=== PATIENT | female | born 1990 | race Caucasian/White ===

== ENCOUNTER 2016-12-28 09:21 | Inpatient (IN) | payer MEDICAID ==
[~2016-12-28] VITALS: Ht 157.5 cm; Wt 90.7 kg
[2016-12-28 09:35] VITALS: BP 132/86
[2016-12-28] MEDS ORDERED: ONDANSETRON 4 MG/2 ML VIAL IVP ONE (09:45)
[2016-12-28] MEDS ORDERED: KETOROLAC 30 MG/ML VIAL IVP ONE (09:45)
[2016-12-28] MEDS ORDERED: NACL 0.9% 1,000 ML IV ONE (09:45)
[2016-12-28] MEDS ORDERED: ALUMINUM HYD/MAG/SIMETHICONE 30 ML, DICYCLOMINE HCL LIQUID 20 MG, LIDOCAINE VISCOUS 2% ... PO ONE ×3 (09:45)
--- NOTE | 2016-12-28 09:48 | NUR ---
26/F BIB SELF c/o Epigastric pain x 1 wk. pt states it is an ongoing pain & watery stools SINCE Jul 2016. PT HAS NAUSEA & DIARRHEA X 2 TIMES X TODAY. HX OF DM & GALL STONE. SKIN IS PINK/WARM/DRY; AAOX4 WITH EVEN AND STEADY GAIT; LUNGS CLEAR BL; HR EVEN AND REGULAR; PT DENIES ANY FEVER, CP OR SOB AT THIS TIME; PATIENT STATES PAIN OF 5/10 AT THIS TIME; VSS; PATIENT POSITIONED FOR COMFORT; HOB ELEVATED; BEDRAILS UP X2; BED DOWN. ER MD MADE AWARE OF PT STATUS.
--- NOTE | 2016-12-28 09:55 | NUR ---
INSERTED IV NO 20 RAC BY RN TYRONE.IV PATENT/INTACT. PT TOLERATED PROCEDURE WELL.
[2016-12-28 10:07] LABS: BASOPHILS # (AUTO) 0.3 K/uL (0.00-0.22); BASOPHILS % (AUTO) 3.5 % (0.0-2.0); EOSINOPHILS # (AUTO) 0.2 K/uL (0-0.4); EOSINOPHILS % (AUTO) 2.5 % (0.0-4.0); HEMATOCRIT 38.8 % (36-48); LYMPHOCYTES # (AUTO) 2.4 K/uL (2.5-16.5); LYMPHOCYTES % (AUTO) 32.8 % (20.5-51.1); MEAN CORPUSCULAR HEMOGLOBIN 28 pg (27-31); MEAN CORPUSCULAR HGB CONC 34 g/dL (33-37); MEAN CORPUSCULAR VOLUME 83 fL (80-94); MONOCYTES # (AUTO) 0.7 K/uL (0.8-1.0); MONOCYTES % (AUTO) 8.9 % (1.7-9.3); NEUTROPHILS # (AUTO) 3.8 K/uL (1.8-7.7); NEUTROPHILS % (AUTO) 52.3 % (42.2-75.2); PLATELET COUNT (AUTO) 317 K/uL (140-450); RED BLOOD CELL COUNT(AUTO) 4.66 MIL/uL (4.20-5.40); RED CELL DISTRIBUTION WIDTH 12.8 % (11.6-13.7); WHITE BLOOD COUNT (AUTO) 7.4 K/uL (4.8-10.8)
[2016-12-28 10:10] LABS: APPEARANCE,URINE CLEAR (CLEAR); BILIRUBIN,URINE NEGATIVE (NEGATIVE); BLOOD, URINE TRACE-I (NEGATIVE); COLOR,URINE YELLOW (YELLOW); LEUKOCYTE ESTERASE ,URINE NEGATIVE (NEGATIVE); NITRITE, URINE NEGATIVE (NEGATIVE); PROTEIN,URINE NEGATIVE (NEGATIVE); UGLUCOSE NEGATIVE (NEGATIVE); UROBILINOGEN,URINE 0.2 EU/dL (0.2 - 1)
[2016-12-28 10:17] LABS: ANION GAP 13.6 (8-16); CALCIUM 8.3 mg/dL (8.5-10.1); CARBON DIOXIDE 25.2 mmol/L (21-32); CREATININE 0.7 mg/dL (0.6-1.3); POTASSIUM 3.8 mmol/L (3.5-5.1)
[2016-12-28 10:20] LABS: BACTERIA,URINE 1+ /HPF (None Seen); RBC,URINE 0-5 (RARE) /HPF (0-5); WBC,URINE 0-5 (RARE) /HPF (0-5)
[2016-12-28 10:22] LABS: ALBUMIN 3.5 g/dL (3.4-5.0); TOTAL BILIRUBIN 0.2 mg/dL (0.0-1.0); TOTAL PROTEIN, SERUM 7.8 g/dL (6.4-8.2)
--- NOTE | 2016-12-28 10:40 | NUR ---
PT AMB TO REST ROOM.
--- NOTE | 2016-12-28 11:00 | NUR ---
Patient appears to be resting comfortably in bed. Vital Signs within normal limits. Respirations even and unlabored.WILL CONTINUE TO MONITOR. Addendum: 12/28/16 at 1120 by [email or web address] PT DENIES ANY PAIN AT THIS TIME.
[2016-12-28] MEDS ORDERED: HYDROmorphone 1 MG/ML AMP IVP ONE (12:15)
[2016-12-28] MEDS ORDERED: ACETAMINOPHEN 325 MG TAB PO PRN (12:20)
[2016-12-28] MEDS ORDERED: cefTRIAXone 1,000 MG VIAL ONE (12:30)
--- NOTE | 2016-12-28 12:55 | NUR ---
GAVE REPORT TO TAYO KLEIN.
--- NOTE | 2016-12-28 12:58 | NUR ---
APatient will be admitted to care of DR CASEY. Admited to TELE. Will go to room 119B. Belongings list completed. Report to TAYO KLEIN.
[2016-12-28 13:03] LABS: PARTIAL THROMBOPLASTIN TIME 28.5 secs (22-35.6); PROTHROMBIN TIME 10.4 secs (10.8-13.4)
[2016-12-28 13:30] VITALS: BP 106/58
--- NOTE | 2016-12-28 13:30 | NUR ---
PT WAS WHEELED IN VIA GURNEY FROM THE ER, A/OX4. WITH NO S/S OF DISTRESS. NO COMPLAINTS OF PAIN AT THIS TIME. WITH IV HEPLOCK AT RIGHT AC 20 G, INTACT AND PATENT. INITIAL ASSESSMENT DONE. ORIENTED PT TO THE UNIT. WILL CONTINUE TO MONITOR. CALL LIGHT WITHIN REACH.
[2016-12-28] MEDS ORDERED: METF500T PO (14:16)
[2016-12-28 14:28] LABS: ALCOHOL, BLOOD < 3 mg/dL (<3); FREE T4 (FREE THYROXINE) 1.19 ng/dL (0.76-1.46); MAGNESIUM 1.8 mg/dL (1.8-2.4); PHOSPHORUS 3.6 mg/dL (2.5-4.9)
[2016-12-28] MEDS ORDERED: INSULIN LISPRO SLIDING SCALE 100 UNITS/ML VIAL SUBQ PRN ×2 (14:50)
[2016-12-28] MEDS ORDERED: DEXTROSE 50% 50 ML SYR IVP PRN ×2 (14:50)
[2016-12-28 14:53] LABS: THYROID STIMULATING HORMONE 3.27 uIU/mL (0.34-3.76)
--- NOTE | 2016-12-28 15:30 | NUR ---
MRSA NARES SWABS COLLECTED AND SENT TO THE LAB.
[2016-12-28] MEDS: NACL 0.9% 1,000 ML IV SCH ×3 (15:31→23:13)
[2016-12-28 16:00] VITALS: BP 102/60
[2016-12-28] MEDS ORDERED: PNEUMOCOCCAL VACCINE 23 MCG/0.5 ML VIAL IMVAC SCH (16:00)
[2016-12-28] MEDS: BLOOD GLUCOSE MONITORING 1 DEV DEV FS SCH ×2 (16:30→20:38)
[2016-12-28] MEDS ORDERED: BLOOD GLUCOSE MONITORING 1 DEV DEV FS SCH (16:30)
--- NOTE | 2016-12-28 19:07 | NUR ---
PAGED Merlene JEFFERSON REGARDING PT'S DIET AND MRSA SCREEN ORDERS. DOCTOR STATED HE WILL PUT THE ORDER ACCORDINGLY.
--- NOTE | 2016-12-28 19:15 | NUR ---
LEFT A MESSAGE TO DIETARY FOR PT'S DINNER.
--- NOTE | 2016-12-28 19:29 | NUR ---
ENDORSED TO STRAPPING MACHINE OPERATOR RN FOR CONTINUITY OF CARE.
--- NOTE | 2016-12-28 19:30 | NUR ---
RECEIVED PT AWAKE TALKING TO FAMILY MEMBERS AT BEDSIDE, VITAL SIGNS STABLE, DENIES ANY PAIN, NO NAUSEA NOTED, IVF INFUSING WELL, PLAN OF CARE DISCUSS, SAFETY MEASURES IN PLACE, CALL LIGHT WITHIN REACH.
[2016-12-28 20:00] VITALS: BP 123/74
--- NOTE | 2016-12-28 20:10 | NUR ---
BLOOD SUGAR CHECKED WITH 93 RESULT, [facility] DIET WITH TUNA SANDWICH PROVIDED, CONSUMED 100%, INSTRUCTED NPO AFTER MIDNIGHT, VERBALIZED UNDERSTANDING, ALL NEEDS ATTENDED.
[2016-12-28] MEDS: MORPHINE SULFATE 2 MG/ML SYR IVP PRN (21:53)
[2016-12-28] MEDS: ONDANSETRON 4 MG/2 ML VIAL IVP PRN (23:10)
--- NOTE | 2016-12-28 23:10 | NUR ---
PT NAUSEATED BUT NO VOMITING, MEDICATED PRN WITH ZOFRAN IVP, DENIES ANY PAIN AT THIS TIME, MONITORED CLOSELY.
[2016-12-28 23:17] LABS: AMPHETAMINE, URINE NEG. ng/ml (NEG <=1000); BARBITURATE, URINE NEG. ng/ml (NEG <=200); BENZODIAZEPINE, URINE NEG. ng/mL (NEG <=200); CANNABINOID, URINE POS. ng/mL (NEG <=50); COCAINE, URINE NEG. ng/mL (NEG <=300); OPIATE, URINE NEG. ng/mL (NEG <=2000); PHENCYCLIDINE SCREEN,URINE NEG. ng/mL (NEG <=25)
[2016-12-29] VITALS (11 sets, daily range): BP systolic 103–131; BP diastolic 52–80
--- NOTE | 2016-12-29 05:02 | NUR ---
PT AWAKE, MADE AWARE OF PLANNED PROCEDURE, PT PREFER TO SIGN THE SURGICAL CONSENT LATER, WILL ENDORSE TO AM SHIFT.
--- NOTE | 2016-12-29 05:55 | NUR ---
PT SLEEPING, EASILY AROUSABLE, BLOOD SUGAR CHECKED WITH 93 RESULT, IVF INFUSING WELL, MAINTAINED ON NPO, FOR LAP CHOLECYSTECTOMY TODAY, NO SCHEDULE AT THIS TIME, WILL ENDORSE, MONITORED CLOSELY.
[2016-12-29 06:33] LABS: BASOPHILS # (AUTO) 0.1 K/uL (0.00-0.22); BASOPHILS % (AUTO) 1.9 % (0.0-2.0); EOSINOPHILS # (AUTO) 0.3 K/uL (0-0.4); EOSINOPHILS % (AUTO) 3.8 % (0.0-4.0); HEMATOCRIT 37.2 % (36-48); HEMOGLOBIN 12.3 g/dL (12.0-16.0); LYMPHOCYTES # (AUTO) 2.9 K/uL (2.5-16.5); LYMPHOCYTES % (AUTO) 40.4 % (20.5-51.1); MEAN CORPUSCULAR HEMOGLOBIN 28 pg (27-31); MEAN CORPUSCULAR HGB CONC 33 g/dL (33-37); MEAN CORPUSCULAR VOLUME 85 fL (80-94); MONOCYTES # (AUTO) 0.6 K/uL (0.8-1.0); MONOCYTES % (AUTO) 8.4 % (1.7-9.3); NEUTROPHILS # (AUTO) 3.2 K/uL (1.8-7.7); NEUTROPHILS % (AUTO) 45.5 % (42.2-75.2); PLATELET COUNT (AUTO) 290 K/uL (140-450); RED BLOOD CELL COUNT(AUTO) 4.36 MIL/uL (4.20-5.40); RED CELL DISTRIBUTION WIDTH 12.9 % (11.6-13.7); WHITE BLOOD COUNT (AUTO) 7.1 K/uL (4.8-10.8)
[2016-12-29] MEDS: BLOOD GLUCOSE MONITORING 1 DEV DEV FS SCH ×4 (06:37→20:43)
[2016-12-29 07:05] LABS: CHOL/HDL RATIO 3.4 (1-4.5); MAGNESIUM 1.7 mg/dL (1.8-2.4); PHOSPHORUS 3.8 mg/dL (2.5-4.9)
[2016-12-29 07:11] LABS: ANION GAP 12.6 (8-16); CALCIUM 7.6 mg/dL (8.5-10.1); CARBON DIOXIDE 25.3 mmol/L (21-32); CREATININE 0.7 mg/dL (0.6-1.3); POTASSIUM 3.9 mmol/L (3.5-5.1)
--- NOTE | 2016-12-29 07:20 | NUR ---
PT AWAKE, NO DISTRESS NOTED, REPORT GIVEN TO RN MAUREEN FOR CONTINUITY OF CARE.
--- NOTE | 2016-12-29 07:20 | NUR ---
RECEIVED REPORT FROM PM NURSE. PT SEEN ON BED, AOX4. WITH AN IV ON RIGHT AC 20 G, PATENT AND INFUSING WELL WITH NS. NO S/S OF DISTRESS. SIGNED CONSENT, UNDERSTOOD PROCEDURE. WILL CONTINUE TO MONITOR. CALL LIGHT WITHIN REACH.
[2016-12-29] MEDS: NACL 0.9% 1,000 ML IV SCH ×2 (08:19→18:19)
[2016-12-29] MEDS: PANTOPRAZOLE 40 MG INJ VIAL IVP SCH (09:05)
--- NOTE | 2016-12-29 09:58 | NUR ---
PATIENT HAS BEEN SCREENED AND CATEGORIZED HIGH NUTRITION RISK. PATIENT WILL BE SEEN WITHIN 1-2 DAYS OF ADMISSION. 12/29/16-12/30/[address]
--- NOTE | 2016-12-29 10:42 | NUR ---
CM NOTE PER MEDICAL WRITER JOSE, REVIEWS SHOULD ONLY BE SENT TO [facility]. FAXED INITIAL REVIEW TO [facility] [phone] [place] [phone]
--- NOTE | 2016-12-29 11:25 | NUR ---
PT WENT TO OR VIA GURNEY. IN STABLE CONDITION.
[2016-12-29] MEDS ORDERED: ROCURONIUM 50 MG/5 ML VIAL IV ONE (12:29)
[2016-12-29] MEDS ORDERED: DEXAMETHASONE 4 MG/ML VIAL ONE (12:29)
[2016-12-29] MEDS ORDERED: KETOROLAC 30 MG/ML VIAL ONE (12:29)
[2016-12-29] MEDS ORDERED: LIDOCAINE 2% 100 MG/5 ML SYR IVP ONE (12:29)
[2016-12-29] MEDS ORDERED: PROPOFOL 200 MG/20 ML VIAL IV ONE (12:29)
[2016-12-29] MEDS ORDERED: DESFLURANE 240 ML BTL INH ONE (12:29)
[2016-12-29] MEDS ORDERED: SUCCINYLCHOLINE CHLORIDE 200 MG/10 ML VIAL IVP ONE (12:29)
[2016-12-29] MEDS ORDERED: BUPIVACAINE-MPF/EPI 0.25% 30 ML VIAL INJ ONE (12:36)
[2016-12-29] MEDS ORDERED: MIDAZOLAM 2 MG/2 ML VIAL ONE (12:39)
[2016-12-29] MEDS ORDERED: fentaNYL 0.05 MG/ML VIAL ONE (12:39)
[2016-12-29] MEDS ORDERED: ceFAZolin 1,000 MG VIAL ONE (12:43)
[2016-12-29] MEDS ORDERED: ONDANSETRON 4 MG/2 ML VIAL IVP PRN (12:55)
[2016-12-29] MEDS ORDERED: HYDROmorphone 1 MG/ML AMP IVP PRN (12:55)
[2016-12-29] MEDS ORDERED: BLOOD GLUCOSE MONITORING 1 DEV DEV FS SCH (12:57)
[2016-12-29] MEDS: HYDROmorphone PFS 2 MG/ML SYR ONE ×4 (14:07→14:37)
--- NOTE | 2016-12-29 15:03 | NUR ---
PT RETURNED FROM OR, IN STABLE CONDITION. WITH 4 ABDOMINAL BANDAGES, INTACT AND DRY. PT IS COMPLAINING OF PAIN, WILL MEDICATE. WILL CONTINUE TO MONITOR. NO S/S OF DISTRESS. CALL LIGHT WITHIN REACH.
--- NOTE | 2016-12-29 15:11 | NUR ---
12/29/16 RD INITIAL ASSESSMENT COMPLETED PLEASE REFER TO NUTRITION ASSESSMENT UNDER CARE ACTIVITY FOR ESTIMATED NUTRITIONAL NEEDS. 1. WHEN MEDICALLY FEASIBLE, RESUME PO DIET - TO START ON CLEAR LIQUID DIET AND ADVANCE TOLERATED TO 75 G CONSISTENT CARBOHYDRATE DIET 2. RD TO FOLLOW-UP 2-3 DAYS; HIGH RISK LOPEZ BOWEN, ISHAAN
[2016-12-29] MEDS: MORPHINE SULFATE 2 MG/ML SYR IVP PRN (15:37)
--- NOTE | 2016-12-29 16:29 | NUR ---
PT COMPLAINED OF ITCHINESS ON FACE AND LEGS. SPOKE TO DOCTOR.
[2016-12-29] MEDS ORDERED: MAG SULF 2000 MG/WATER PREMIX 50 ML IV SCH (16:30)
[2016-12-29] MEDS ORDERED: diphenhydrAMINE 50 MG/ML VIAL IVP PRN (16:30)
--- NOTE | 2016-12-29 17:29 | NUR ---
PT WAS ABLE TO AMBULATE WITH A 1 PERSON ASSIST TO THE BATHROOM: WAS ABLE TO PASS GAS AND URINATE.
--- NOTE | 2016-12-29 18:48 | NUR ---
PT SEEN AMBULATING AROUND THE UNIT WITH AT HER SIDE.
--- NOTE | 2016-12-29 19:20 | NUR ---
ENDORSED TO GLAZE SUPERVISOR RN FOR CONTINUITY OF CARE
--- NOTE | 2016-12-29 19:25 | NUR ---
RECEIVED FROM AM RN IN BED WITH SPOUSE. SEEN PT. AMBULATING DOWN THE HALLWAY EARLIER. IVF SITE TO RAC#20 INTACT AND NO INFILTRATION. VERBALIZES WELL. A/O X 4. ROM X 4. CLEAR SPEECH. LAP CHOLECYSTECTOMY DONE TODAY. CARE PLANS FOR THE NIGHT DISCUSSED WITH HER AND CALL LIGHT WITH IN REACH. NO BLEEDING TO INCISION SITE.
[2016-12-29] MEDS: ONDANSETRON 4 MG/2 ML VIAL IVP PRN (20:42)
[2016-12-29] MEDS: HYDROmorphone 1 MG/ML AMP IVP PRN (20:42)
[2016-12-29] MEDS: HYDROcodone/APAP 5/325 MG 1 TAB TAB PO PRN (23:19)
--- NOTE | 2016-12-29 23:47 | NUR ---
PT. REQUESTED PAIN RELIEVER. RT SHE STATED THAT SHE CAN START FEELING PAIN IN HER STOMACH NOW. REQUESTED FOR P.O. PAIN RELIEVER. MEDICATED WITH NORCO ORDERED. A/O X 4.
[2016-12-30 00:11] VITALS: BP 119/73
[2016-12-30] MEDS: NACL 0.9% 1,000 ML IV SCH ×2 (04:19→08:47)
[2016-12-30] MEDS: HYDROmorphone 1 MG/ML AMP IVP PRN ×2 (04:42→14:23)
--- NOTE | 2016-12-30 05:26 | NUR ---
AWAKE AT THIS TIME AND DOING SPIROMETRY EXERCISE. ABLE TO VERBALIZE WELL. NO SOB. CALL LIGHT WITH IN REACH.
[2016-12-30] MEDS: BLOOD GLUCOSE MONITORING 1 DEV DEV FS SCH ×3 (05:40→17:23)
[2016-12-30 06:14] LABS: BASOPHILS # (AUTO) 0.1 K/uL (0.00-0.22); BASOPHILS % (AUTO) 0.8 % (0.0-2.0); EOSINOPHILS # (AUTO) 0.2 K/uL (0-0.4); EOSINOPHILS % (AUTO) 1.5 % (0.0-4.0); HEMATOCRIT 36.9 % (36-48); HEMOGLOBIN 12.3 g/dL (12.0-16.0); LYMPHOCYTES # (AUTO) 1.9 K/uL (2.5-16.5); MEAN CORPUSCULAR HEMOGLOBIN 28 pg (27-31); MEAN CORPUSCULAR HGB CONC 33 g/dL (33-37); MEAN CORPUSCULAR VOLUME 84 fL (80-94); MONOCYTES # (AUTO) 0.6 K/uL (0.8-1.0); MONOCYTES % (AUTO) 5.4 % (1.7-9.3); NEUTROPHILS # (AUTO) 8.9 K/uL (1.8-7.7); NEUTROPHILS % (AUTO) 76.3 % (42.2-75.2); PLATELET COUNT (AUTO) 305 K/uL (140-450); RED BLOOD CELL COUNT(AUTO) 4.42 MIL/uL (4.20-5.40); RED CELL DISTRIBUTION WIDTH 12.8 % (11.6-13.7); WHITE BLOOD COUNT (AUTO) 11.7 K/uL (4.8-10.8)
[2016-12-30 06:16] LABS: ANION GAP 12.4 (8-16); CALCIUM 8.2 mg/dL (8.5-10.1); CARBON DIOXIDE 26.4 mmol/L (21-32); CREATININE 0.7 mg/dL (0.6-1.3); POTASSIUM 3.8 mmol/L (3.5-5.1)
[2016-12-30 06:23] LABS: PHOSPHORUS 3.7 mg/dL (2.5-4.9)
--- NOTE | 2016-12-30 07:28 | NUR ---
RECEIEVED PT IN BED. AWAKE, ALERT ORIENTED X4. NO SOB NOTED. POSITIVE BOWEL SOUNDS NOTED ON FOUR QUADRANTS. ABDOMINAL DRESSING DRY AND INTACT. PT AMBULATORY WITH ASSIST. SAFETY PRECAUTION IN PLACE CALL LIGHT WITHIN REACH.
[2016-12-30 08:00] VITALS: BP 106/73
--- NOTE | 2016-12-30 08:10 | NUR ---
CM NOTE FAXED CONCURRENT REVIEW TO [facility] [phone] [place] [phone]
[2016-12-30] MEDS: PANTOPRAZOLE 40 MG INJ VIAL IVP SCH (08:36)
[2016-12-30] MEDS: HYDROcodone/APAP 5/325 MG 1 TAB TAB PO PRN (08:54)
[2016-12-30 10:34] LABS: ALBUMIN 3.2 g/dL (3.4-5.0); BILIRUBIN,DIRECT 0.1 mg/dL (0.0-0.3); TOTAL BILIRUBIN 0.2 mg/dL (0.0-1.0); TOTAL PROTEIN, SERUM 7.1 g/dL (6.4-8.2)
[2016-12-30] MEDS ORDERED: ASPI81CT89 PO (13:10)
[2016-12-30] MEDS ORDERED: SIMV10TA1 PO (13:10)
[2016-12-30] MEDS ORDERED: DOCU-67 PO (13:11)
[2016-12-30] MEDS ORDERED: HYDR-4452 PO (13:11)
[2016-12-30 16:00] VITALS: BP 109/72
--- NOTE | 2016-12-30 17:25 | NUR ---
DISCHARGE INSTRUCTIONS AND HEALTH TEACHINGS GIVEN TO PT. PT VERBALIZED UNDERSTANDING, FAMILY AT BEDSIDE. PT SIGNED DISCHARGE PAPERS. IV CANNULA REMOVED AND INTACT. NAME ARM BAND REMOVED. NO SOB NOTED. DENIES ANY PAIN OR DISCOMFORT AT THIS TIME. PT WHEELED OUT TO THE HOSPITAL PARKING LOT, WITH , PER RN, ON STABLE CONDITION, TO THEIR PRIVATE OWNED VEHICLE. PT DISCHARGED ON STABLE CONDITION.
== END 2016-12-30 17:25 | disposition home or self-care (01) | DRG 263 ==
LOC: MED 09:21 → MTU 12:27
PROVIDERS: ADMIT Family Medicine; ATTEND Family Medicine
PROC: 0FT44ZZ Resection of Gallbladder, Percutaneous Endoscopic Approach (ICD-10-PCS; principal; 2016-12-29 11:00)
DX: K80.00 Calculus of gallbladder with acute cholecystitis without obstruction (principal); E11.51 Type 2 diabetes mellitus with diabetic peripheral angiopathy without gangrene; R82.71 Bacteriuria; E66.9 Obesity, unspecified; Z83.3 Family history of diabetes mellitus; Z68.36 Body mass index [BMI] 36.0-36.9, adult
CPT/HCPCS: 36415; 71010; 76705; 80048; 80053; 80076; 80305; 81001; 82150; 82374; 82948; 83036; 83690; 83735; 83880; 84100; 84439; 84443; 84703; 85025; 85610; 85730; 86886; 86900; 86901; 87081; 87086; 93005; 93925; 93970; 96361; 96365; 96375; 99285; C9113; G0482; J0330; J0690; J0696; J1100; J1170; J1200; J1815; J1885; J2001; J2250; J2270; J2405; J2704; J3010; J3475; J3490; J7030; J7060; Q0092

== ENCOUNTER 2017-01-03 23:43 | Emergency (ER) | payer MEDICAID ==
[~2017-01-03] VITALS: Ht 152.4 cm; Wt 90.7 kg
[~2017-01-03 23:43] MED LIST: ASPI81CT89 PO; DOCU-67 PO; HYDR-4452 PO; METF500T PO; SIMV10TA1 PO
[2017-01-04 00:19] VITALS: BP 103/55
--- NOTE | 2017-01-04 01:46 | NUR ---
PT TAKEN TO BED 4
--- NOTE | 2017-01-04 01:50 | NUR ---
PATIENT PRESENTS TO ED WITH C/O RT EPIGASTRIC PAIN S/P CHOLECYSTECTOMY PT DENIES N/V/D; SKIN IS PINK/WARM/DRY; AAOX4 WITH EVEN AND STEADY GAIT; LUNGS CLEAR BL; HR EVEN AND REGULAR; PT DENIES ANY FEVER, CP, SOB, OR COUGH AT THIS TIME; PATIENT STATES PAIN OF 10/10 AT THIS TIME; VSS; PATIENT POSITIONED FOR COMFORT; HOB ELEVATED; BEDRAILS UP X2; BED DOWN. ER MD MADE AWARE OF PT STATUS.
--- NOTE | 2017-01-04 01:58 | NUR ---
Dr. Hanks evaluating patient at bedside.
--- NOTE | 2017-01-04 02:04 | NUR ---
Ultrasound at bedside.
[2017-01-04] MEDS ORDERED: NACL 0.9% 1,000 ML IV ONE (02:15)
[2017-01-04] MEDS ORDERED: ONDANSETRON 4 MG/2 ML VIAL IVP ONE (02:15)
[2017-01-04] MEDS ORDERED: PANTOPRAZOLE 40 MG INJ VIAL IVP ONE (02:15)
[2017-01-04] MEDS ORDERED: KETOROLAC 30 MG/ML VIAL IVP ONE (02:15)
[2017-01-04 03:05] VITALS: BP 101/62
--- NOTE | 2017-01-04 03:05 | NUR ---
Patient discharged with v/s stable. Written and verbal after care instructions given and explained. Patient alert, oriented and verbalized understanding of instructions. Ambulatory with steady gait. All questions addressed prior to discharge. ID band removed. Patient advised to follow up with PMD. Rx of PROTONIX 40MG, ZOFRAN, given. Patient educated on indication of medication including possible reaction and side effects. Opportunity to ask questions provided and answered.
== END 2017-01-04 03:05 | disposition home or self-care (01) ==
LOC: MED 23:43
DX: K29.00 Acute gastritis without bleeding (principal); R03.0 Elevated blood-pressure reading, without diagnosis of hypertension; E11.9 Type 2 diabetes mellitus without complications; Z90.49 Acquired absence of other specified parts of digestive tract
CPT/HCPCS: 76705; 96361; 96374; 96375; 99284; C9113; J1885; J2405; Q0092